=== PATIENT | female | born 1970 | race Caucasian/White ===

== ENCOUNTER 2017-03-07 10:33 | Emergency (ER) | payer OTHER ==
[~2017-03-07] VITALS: Ht 167.6 cm; Wt 81.8 kg
[~2017-03-07 10:33] MED LIST: BACTDS PO; ELIM TOP; KEN25O TOP
[2017-03-07 10:41] VITALS: Ht 167.6 cm; Wt 81.8 kg
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
[2017-03-07] MEDS ORDERED: traMADol 50 MG TAB PO ONE (11:30)
[2017-03-07] MEDS ORDERED: DIPHTH/TET/ACEL PERTUSS (ADULT) 0.5 ML VIAL IM* ONE (11:30)
--- NOTE | 2017-03-07 11:47 | RADRPT ---
PROCEDURE: Shoulder x-ray CLINICAL INDICATION: Pain TECHNIQUE: Left shoulder 3 views COMPARISON: None FINDINGS: 3 views of the left shoulder demonstrate no displaced fracture. The humeral head articulates anatom ically with the glenoid fossa. The acromioclavicular articulation is within normal limits. Bones a re normally mineralized. Soft tissues are unremarkable. IMPRESSION: No acute fracture dislocation No significant degenerate change RPTAT: HH .Nirmal Jewell MD, Date Time Electronically viewed and signed by .Nirmal Jewell MD, on 03/07/2017 11:47 .W/
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
[2017-03-07 12:50] VITALS: BP 118/62; PULSE 90; RESP 18; TEMP 98.6
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
[2017-03-07] MEDS ORDERED: EMPA25TA PO (13:26)
[2017-03-07] MEDS ORDERED: METF500T4 PO (13:26)
[2017-03-07] MEDS ORDERED: OMEP20CA16 PO (13:26)
[2017-03-07] MEDS ORDERED: PRAV20TA63 PO (13:27)
[2017-03-07] MEDS ORDERED: BENA20TA48 PO (13:27)
== END 2017-03-07 13:56 | disposition home or self-care (01) ==
LOC: E/R 10:33
DX: S00.93XA Contusion of unspecified part of head, initial encounter (principal); S80.211A Abrasion, right knee, initial encounter; S60.415A Abrasion of left ring finger, initial encounter; E11.9 Type 2 diabetes mellitus without complications; F17.210 Nicotine dependence, cigarettes, uncomplicated; I10 Essential (primary) hypertension; R51 Headache; Y08.89XA Assault by other specified means, initial encounter; Z79.84 Long term (current) use of oral hypoglycemic drugs; Z23 Encounter for immunization
CPT/HCPCS: 70450; 71010; 73030; 82962; 90471; 90715; Z7502; Z7610